=== PATIENT | male | born 1955 ===

== ENCOUNTER 2018-02-28 07:57 | Day surgery (SDC) | payer MEDICAID ==
[2018-02-25 13:35] VITALS: BMI 27.4
[2018-02-28] MEDS ORDERED: Midazolam 2 MG/2 ML VIAL ONE (09:53)
[2018-02-28] MEDS ORDERED: Propofol 10 mg/ml Inj (20 ML) ONE (09:53)
[2018-02-28] MEDS ORDERED: Lactated Ringer's 1,000 ML IV ONE (09:55)
[2018-02-28] MEDS ORDERED: cefTRIAXone (Rocephin) 1 gm Inj IM ONE (10:00)
[2018-02-28] MEDS ORDERED: Lactated Ringer's 1,000 ML IV SCH (11:30)
[2018-02-28] MEDS: Morphine 4 MG/ML VIAL IVP PRN ×2 (11:45→12:03)
[2018-02-28 11:50] VITALS: RESP 18
[2018-02-28 14:08] VITALS: TEMP 97.5
[2018-02-28 14:10] VITALS: O2SAT 99
[2018-02-28 14:28] VITALS: BP 113/65; PULSE 66
--- NOTE | 2018-02-28 14:44 | OP ---
PROCEDURE DATE: PREOPERATIVE DIAGNOSIS: Symptomatic benign prostatic hypertrophy. POSTOPERATIVE DIAGNOSIS: Symptomatic benign prostatic hypertrophy. PROCEDURE PERFORMED: GreenLight laser of the prostate plus prostatic urethral biopsy. DESCRIPTION OF PROCEDURE: The patient was placed in the operating room table in dorsal lithotomy position. The area of the groin was draped and prepped in a sterile manner. Using a laser scope to gain access into the bladder at the level of the verumontanum. There appeared to be like growth in that area. So, I took biopsy of these and send them for specimen analysis. Then, I went back in, then applied ureteral orifices and demarcated the distal resection with the laser fiber and began to laze the adenoma. After about 310,000 joules of lasering, then there was wide opening into the bladder. I inserted a number 22 three-way Mercedes catheter. Blood loss was estimated that the end of procedure about 20 mL. The patient had no intraoperative complications, was taken from the operating room in good condition. Lynn Lewis MD
== END 2018-02-28 15:40 | disposition home or self-care (01) ==
LOC: H.OPSURG 07:57
PROVIDERS: ATTEND Urology
DX: N40.0 Benign prostatic hyperplasia without lower urinary tract symptoms (principal); E11.9 Type 2 diabetes mellitus without complications
CPT/HCPCS: 52648; 82948; 88305; J0696; J2250; J2270; J2704; J2765; J3010; J7120